=== PATIENT | female | born 1975 | race Caucasian/White ===

== ENCOUNTER 2017-03-30 19:16 | Emergency (ER) | payer OTHER ==
[~2017-03-30] VITALS: Ht 160 cm; Wt 113.4 kg
[2017-03-30 19:19] VITALS: BP 1131/78; Ht 160 cm; Wt 113.4 kg
== END 2017-03-30 20:23 | disposition home or self-care (01) ==
LOC: ED 19:16
DX: R09.89 Other specified symptoms and signs involving the circulatory and respiratory systems (principal); M19.90 Unspecified osteoarthritis, unspecified site; M79.7 Fibromyalgia; Z88.1 Allergy status to other antibiotic agents

== ENCOUNTER 2017-07-14 23:07 | Emergency (ER) | payer OTHER ==
[~2017-07-14] VITALS: Ht 160 cm; Wt 126.3 kg
[2017-07-14 23:30] VITALS: Ht 160 cm; Wt 126.3 kg
[2017-07-15 00:12] VITALS: BP 137/88
== END 2017-07-15 00:12 | disposition home or self-care (01) ==
LOC: ED 23:07
DX: K14.0 Glossitis (principal); R11.0 Nausea; Z88.0 Allergy status to penicillin; Z90.710 Acquired absence of both cervix and uterus; M19.90 Unspecified osteoarthritis, unspecified site; M79.7 Fibromyalgia

== ENCOUNTER 2018-06-10 12:58 | Inpatient (IN) | payer OTHER ==
[~2018-06-10] VITALS: Ht 154.9 cm; Wt 140.6 kg
[2018-06-10 13:08] VITALS: Ht 154.9 cm; Wt 140.6 kg
[2018-06-10 14:02] LABS: BASOPHIL % 0.4 % (0-2); PLATELET COUNT 292 x10^3mcL (130-400)
[2018-06-10 14:05] LABS: CALCIUM 8.6 mg/dL (8.5-10.1); CARBON DIOXIDE 26.7 mmol/L (21-32); CHLORIDE SERUM 103 mmol/L (98-107); GFR1 > 60 mL/min; GLUCOSE SERUM 128 mg/dL (74-106); POTASSIUM SERUM 3.4 mmol/L (3.5-5.1); RED CELL DISTRIBUTION WIDTH 15.6 % (11.5-14.5); SODIUM SERUM 139 mmol/L (136-145)
[2018-06-10 14:11] LABS: ALBUMIN 3.5 g/dL (3.4-5.0); ALKALINE PHOSPHATASE 72 U/L (46-116); ALT/SGPT 22 U/L (14-59); AST/SGOT 15 U/L (15-37); BILIRUBIN TOTAL 0.2 mg/dL (0.20-1.00); TOTAL PROTEIN, SERUM 7.9 g/dL (6.4-8.2)
[2018-06-10] MEDS ORDERED: LAMICTAL150 MG PO (16:10)
[2018-06-10 16:30] LABS: PHOSPHOROUS 3.1 mg/dL (2.5-4.9)
[2018-06-10 16:32] LABS: CHOLESTEROL/HDL RATIO 5.7
[2018-06-10 16:42] LABS: T3 TOTAL 1.37 ng/mL
[2018-06-10 16:55] VITALS: BP 113/60
[2018-06-10 17:14] LABS: FREE T4 1.02 ng/dL (0.76-1.46); FREE THYROXINE INDEX 2.7 ug/dL (1.4-4.5)
[2018-06-10 21:32] VITALS: BP 100/42
[2018-06-10 21:50] VITALS: BP 100/42
[2018-06-11 06:08] VITALS: BP 104/55
[2018-06-11 08:53] LABS: BASOPHIL % 0.4 % (0-2); PLATELET COUNT 294 x10^3mcL (130-400)
[2018-06-11 08:54] LABS: RED CELL DISTRIBUTION WIDTH 15.8 % (11.5-14.5)
[2018-06-11 10:33] VITALS: BP 110/58
[2018-06-11 11:15] LABS: CALCIUM 8.2 mg/dL (8.5-10.1); CHLORIDE SERUM 105 mmol/L (98-107); CREATININE SERUM 0.9 mg/dL (0.6-1.0); GFR1 > 60 mL/min; GLUCOSE SERUM 105 mg/dL (74-106); MAGNESIUM 2.1 mg/dL (1.8-2.4); PHOSPHOROUS 2.5 mg/dL (2.5-4.9); POTASSIUM SERUM 3.7 mmol/L (3.5-5.1); SODIUM SERUM 140 mmol/L (136-145)
[2018-06-11 21:33] VITALS: BP 120/51
[2018-06-12 06:25] VITALS: BP 101/52
[2018-06-12 08:30] VITALS: BP 106/62
[2018-06-12 17:00] VITALS: BP 118/61
[2018-06-13 05:38] VITALS: BP 117/60
[2018-06-13 07:19] LABS: BASOPHIL % 0.6 % (0-2); PLATELET COUNT 263 x10^3mcL (130-400); RED CELL DISTRIBUTION WIDTH 15.8 % (11.5-14.5)
[2018-06-13 07:27] LABS: CALCIUM 8.7 mg/dL (8.5-10.1); CARBON DIOXIDE 31.2 mmol/L (21-32); CHLORIDE SERUM 103 mmol/L (98-107); CREATININE SERUM 0.9 mg/dL (0.6-1.0); GFR1 > 60 mL/min; GLUCOSE SERUM 115 mg/dL (74-106); PHOSPHOROUS 3.4 mg/dL (2.5-4.9); SODIUM SERUM 141 mmol/L (136-145)
[2018-06-13] MEDS ORDERED: ABILIFY5 M1 PO (11:03)
[2018-06-13 13:43] VITALS: BP 117/60
== END 2018-06-13 15:30 | disposition home or self-care (01) | DRG 885 ==
LOC: ED 12:58 → MU 15:52 → DU 15:52 → MU 06-12 10:11
PROVIDERS: Emergency Medicine; ADMIT Internal Medicine
DX: F31.9 Bipolar disorder, unspecified (principal); Z68.43 Body mass index [BMI] 50.0-59.9, adult; E11.9 Type 2 diabetes mellitus without complications; E78.5 Hyperlipidemia, unspecified; E66.9 Obesity, unspecified; Z71.3 Dietary counseling and surveillance
CPT/HCPCS: 82962; 84439; G0480; J0780; J1200; J7030

== ENCOUNTER 2019-10-06 09:36 | Emergency (ER) | payer OTHER ==
[~2019-10-06] VITALS: Ht 170.2 cm; Wt 132.4 kg
[~2019-10-06 09:36] MED LIST: ABILIFY5 M1 PO; LAMICTAL150 MG PO
[2019-10-06 09:46] VITALS: BP 123/73; Ht 170.2 cm; Wt 132.4 kg
== END 2019-10-06 10:35 | disposition home or self-care (01) ==
LOC: ED 09:36
DX: H60.92 Unspecified otitis externa, left ear (principal); M79.7 Fibromyalgia; M19.90 Unspecified osteoarthritis, unspecified site; Z88.1 Allergy status to other antibiotic agents
CPT/HCPCS: J1885

== ENCOUNTER 2019-10-06 18:38 | Emergency (ER) | payer OTHER ==
[~2019-10-06] VITALS: Ht 177.8 cm; Wt 132.4 kg
[2019-10-06 18:44] VITALS: Ht 177.8 cm; Wt 132.4 kg
[2019-10-06 20:25] VITALS: BP 132/52
== END 2019-10-06 20:25 | disposition home or self-care (01) ==
LOC: ED 18:38
DX: H60.92 Unspecified otitis externa, left ear (principal); M79.7 Fibromyalgia; M19.90 Unspecified osteoarthritis, unspecified site; Z90.49 Acquired absence of other specified parts of digestive tract; Z88.1 Allergy status to other antibiotic agents
CPT/HCPCS: J1885

== ENCOUNTER 2019-10-08 06:04 | Emergency (ER) | payer OTHER ==
[~2019-10-08] VITALS: Ht 160 cm; Wt 133.5 kg
[2019-10-08 06:15] VITALS: BP 136/45; Ht 160 cm; Wt 133.5 kg
== END 2019-10-08 07:20 | disposition home or self-care (01) ==
LOC: ED 06:04
DX: H60.92 Unspecified otitis externa, left ear (principal); M19.90 Unspecified osteoarthritis, unspecified site; M79.7 Fibromyalgia; Z90.710 Acquired absence of both cervix and uterus; Z88.1 Allergy status to other antibiotic agents
CPT/HCPCS: J1885